=== PATIENT | male | born 1995 | race Caucasian/White ===

== ENCOUNTER 2021-10-07 16:45 | Emergency (ER) | payer BC, SELFPAY ==
--- NOTE | ~2021-10-07 | XR_ITS ---
EXAMINATION: XR chest 2V 10/07/2021 17:03 INDICATION: Chest pain PROCEDURE: 2 view chest COMPARISON: No prior studies for comparison. FINDINGS: The lungs are clear. The cardiomediastinal silhouette is within normal limits. There are no pleural effusions. There is no pneumothorax suspected. IMPRESSION: 1: NO ACUTE CARDIOPULMONARY DISEASE. Reviewed, dictated and finalized at location A.
--- NOTE | 2021-10-07 16:48 | ECG_ITS ---
Measurements Intervals [place] Rate: 106 P: 57 [place]: 134 QRS: 52 QRSD: 86 T: 44 QT: 306 QTc: 406 Interpretive Statements SINUS TACHYCARDIA BASELINE ARTIFACT- I, III, AVR, AVL, AVF BORDERLINE ECG Electronically Signed On 10-07-2021 20:01:37 CDT by Prashanth Cruz D.O.
[2021-10-07 16:53] VITALS: BP 151/85; PULSE 108; RESP 18; TEMP 36.2; O2SAT 100
[2021-10-07 17:07] LABS: Basophils Absolute Auto 0.1 K/mm3 (0.0-0.1); Basophils Percent Auto 0.5 % (0.2-1.2); Eosinophils Absolute Auto 0.2 K/mm3 (0-0.3); Eosinophils Percent Auto 1.4 % (0-4.4); Hematocrit 47.3 % (42.0-52.0); Hemoglobin 15.5 g/dL (14.0-18.0); Immature Granulocyte Absolute 0.07 K/mm3 (0.00-0.031); Immature Granulocyte Percent A 0.5 % (0-0.5); Lymphocytes Absolute Auto 3.66 K/mm3 (0.9-3.2); Lymphocytes Percent Auto 27.6 % (18.3-44.2); Mean Corpuscular HGB Conc 32.8 g/dl (32-36); Mean Corpuscular Hemoglobin 27.5 pg (26-34); Mean Corpuscular Volume 83.9 fl (80-100); Mean Platelet Volume 9.7 fl (7.4-10.4); Monocytes Absolute Auto 0.8 K/mm3 (0.1-0.6); Monocytes Percent Auto 6.3 % (2.6-8.5); Neutrophils Absolute Auto 8.4 K/mm3 (1.3-6.7); Neutrophils Percent Auto 63.7 % (45.5-73.1); Platelet Count Result 390 k/mm3 (150-375); Red Blood Count 5.64 M/mm3 (4.6-6.20); Red Cell Distribution Width 13.8 % (11.5-14.5); White Blood Count 13.2 K/mm3 (4.5-10.0)
[2021-10-07 17:18] LABS: Prothrombin Time 13.2 Seconds (11.1-14.7)
[2021-10-07 17:19] LABS: Partial Thromboplastin Time 25.2 SECONDS (22.3-36.8)
[2021-10-07 17:20] LABS: Alanine Aminotransferase 26 U/L (6-50); Albumin Level 4.8 g/dL (3.5-5.1); Alkaline Phosphatase 84 U/L (38-126); Anion Gap 13 mmol/L (8-16); Aspartate Amino Transferase 33 U/L (17-59); Bilirubin,Total 0.3 mg/dL (0.2-1.3); Blood Urea Nitrogen 16 mg/dL (9-20); Calcium 9.4 mg/dL (8.4-10.2); Carbon Dioxide 25 mmol/L (22-30); Chloride 103 mmol/L (98-107); Estimated CRCL calculation 158 ml/min; Estimated Glomerular Filt Rate > 60; Glucose 116 mg/dL (65-110); Lipase 71 U/L (23-300); Potassium 3.6 mmol/L (3.4-5.0); Sodium 141 mmol/L (137-145)
--- NOTE | 2021-10-07 17:26 | ED.CHESTPAIN ---
HPI - Chest Pain General Chief Complaint: Chest Pain Stated Complaint: palpations Time Seen by Provider: 10/07/21 17:16 History of Present Illness HPI narrative: Patient is a 26-year-old healthy male here for evaluation of chest pain and palpitations today. Patient states that he was at work when he noticed that he felt the palpitations. Pain is described as a stabbing in the center of his chest, does not radiate. denies alleviating or exacerbating factors. States that the pain is there about 80% of the time. Palpitations are there all the time, and are not worse with exertion. He also states he has had nausea and lightheadedness, but no vomiting. Denies preceding illness, fevers, sick contacts. He states he has been going through a lot of stressors recently and has been anxious today. Denies history of anxiety disorder. Related Data Allergies Allergy/AdvReac Type Severity Reaction Status Date / Time No Known Allergies Allergy Verified 10/07/21 17:26 Review of Systems Review of Systems: Gen.: Denies fevers or chills Eyes: Denies eye pain or visual change ENT: Denies congestion Respiratory: Denies shortness of breath or cough CV: Reports chest pain and palpitations GI:Reports nausea. Denies abdominal pain, emesis or diarrhea denies burning, urgency, frequency or hematuria Musculoskeletal: Denies back pain or muscle pain Neuro: Denies numbness, tingling, weakness or focal weakness Skin: Denies rash Except as documented, all other systems reviewed and negative All systems reviewed & are unremarkable except as noted in HPI and below Exam Narrative: APPEARANCE: No acute distress, nontoxic, resting in bed EYES: EOMI HEENT: Normocephalic, atraumatic, OMM RESPIRATORY: No respiratory distress Clear to auscultation bilaterally with no rhonchi wheezing or rales. CARDIOVASCULAR: 2+ radial pulses bilaterally. Fast rate, regular rhythm. No murmurs rubs or gallops. ABDOMINAL: Soft, nontender, nondistended, no rebound or guarding MUSCULOSKELETAL: Chest pain is not reproducible with palpation. Moves all extremities. No clubbing, cyanosis or edema. NEURO: Awake and alert. Following commands, speech normal, no focal deficits SKIN: Warm, dry. No rashes lesions or abrasions PSYCHIATRIC: Normal affect/mood Course Vital Signs Vital signs: Vital Signs Temperature 97.2 F L 10/07/21 16:53 Pulse Rate 108 H 10/07/21 16:53 Respiratory Rate 18 10/07/21 16:53 Blood Pressure 151/85 H 10/07/21 16:53 Pulse Oximetry 100 10/07/21 16:53 Temperature 97.2 F L 10/07/21 16:53 Pulse Rate 81 10/07/21 19:32 Respiratory Rate 20 10/07/21 19:32 Blood Pressure 150/77 H 10/07/21 19:32 Pulse Oximetry 100 10/07/21 19:33 MDM - Chest Pain MDM Narrative Medical decision making narrative: 26-year-old male here with chest pain and palpitations today. Exam without evidence of volume overload so doubt heart failure. EKG without signs of active ischemia. Given the timing of pain to ER presentation, single troponin was negative so doubt NSTEMI. Dimer was negative, so doubt PE, pneumothorax (not visualized on chest xr), thoracic aortic dissection (equal radial pulses), pericarditis, tamponade, pneumonia (no infectious symptoms, clear chest xr), myocarditis (no recent illness, neg trop). HEART score 0; will discharge patient home with PMD follow up for suspected anxiety given that patient has been dealing with many stressors recently. Will trial hydroxyzine tonight, not in the ED as patient drove here. Discussed return precautions. Lab Data Result diagrams: 10/07/21 17:00 10/07/21 17:00 Labs: Lab Results 10/07/21 10/07/21 10/07/21 Range/Units 17:00 17:00 17:00 WBC 13.2 H (4.5-10.0) K/mm3 RBC 5.64 (4.6-6.20) M/mm3 Hgb 15.5 (14.0-18.0) g/dL Hct 47.3 (42.0-52.0) % MCV 83.9 (80-100) fl MCH 27.5 (26-34) pg MCHC 32.8 (32-36) g/dl RDW 13.8 (11.5-14.5) % Plt Count
[2021-10-07 17:29] VITALS: BP 125/91; PULSE 98; RESP 14; O2SAT 97
[2021-10-07] MEDS: Please add drug allergy info to patient profile. 1 EACH XX (17:30)
[2021-10-07 17:31] LABS: Troponin I < 0.012 ng/mL (0.000-0.034)
[2021-10-07] MEDS: ASPIRIN 81 MG CHEWABLE TABLET 324 MG PO (17:34)
[2021-10-07] MEDS: ONDANSETRON HCL ODT 4 MG TABLET PO (17:35)
[2021-10-07] MEDS: IBUPROFEN 600 MG TABLET PO (17:35)
[2021-10-07 18:37] VITALS: BP 133/74; PULSE 89; RESP 20; O2SAT 100
--- NOTE | 2021-10-07 19:14 | PC.NURSE ---
Assuming care of pt.
[2021-10-07 19:20] LABS: D Dimer < 0.27 ug/mL (<0.48)
[2021-10-07 19:32] VITALS: BP 150/77; PULSE 81; RESP 20; O2SAT 100
[2021-10-07 19:33] VITALS: O2SAT 100
== END 2021-10-07 19:50 | disposition home or self-care (01) ==
PROVIDERS: Emergency Medicine; Physician Assistant; Emergency Provider Emergency Medicine
DX: F41.9 Anxiety disorder, unspecified (principal)
CPT/HCPCS: 36415; 71046; 80053; 83690; 84484; 85025; 85380; 85610; 85730; 93005; 99284; A9270

== ENCOUNTER 2022-11-20 11:37 | Emergency (ER) | payer BC, SELFPAY ==
[2022-11-20 11:47] VITALS: BP 136/88; PULSE 93; RESP 16; TEMP 36.5; O2SAT 99
--- NOTE | 2022-11-20 11:57 | ED.EXTPRO ---
HPI - Extremity Problem General Chief complaint: Extremity Problem,Nontraumatic Stated complaint: Lt Foot Pain Time Seen by Provider: 11/20/22 11:50 Source: patient Mode of arrival: ambulatory Limitations: no limitations History of Present Illness HPI Narrative: Álvaro is a 27-year-old male patient presenting to the clinic today with complaints of left lateral foot/5th toe pain that began yesterday. He reports that he is having needle sensation pain to his left lateral foot and toe. No known injury. Thinks he may have gout. History of family diabetes- States he had lab work back in December and off all the results were normal. Related Data Allergies Allergy/AdvReac Type Severity Reaction Status Date / Time No Known Allergies Allergy Verified 11/20/22 11:40 Review of Systems Review of Systems: Pertinent positives per HPI. Patient denies any fever, chills, rash, headache, visual changes, dizziness, cough, runny nose, sore throat, shortness of breath, chest pain, palpitations, nausea, vomiting, diarrhea, constipation, abdominal pain, or any urinary issues. PMFSH Comments At the time of my signature, I reviewed and agree with the nursing past medical, surgical, social, and family history. There is no relevant family history pertinent to the patient complaint. Exam Narrative: General: Well-developed, well nourished, in no apparent distress Head: Normocephalic, atraumatic. Cardio: Regular rate and rhythm, s1 and s2 normal, no murmur appreciated. Resp: Clear to auscultation bilaterally, no rhonchi, rales, wheezing or rubs. Musculoskeletal: No deformity, tender to palpation over the left 5th metatarsal and phalanx-mild swelling, no wounds, grossly normal range of motion, muscle strength strong and equal, peripheral pulse strong, no edema, no cyanosis, normal gait and station Course Course Emergency Course: Portions of this record may have been created with voice recognition software. Level of Care: Express Care Visit Vital Signs Vital signs: Vital Signs Temperature 36.5 C 11/20/22 11:47 Pulse Rate 93 11/20/22 11:47 Respiratory Rate 16 11/20/22 11:47 Blood Pressure 136/88 11/20/22 11:47 Pulse Oximetry 99 11/20/22 11:47 Temperature 36.5 C 11/20/22 11:47 Pulse Rate 93 11/20/22 11:47 Respiratory Rate 16 11/20/22 11:47 Blood Pressure 136/88 11/20/22 11:47 Pulse Oximetry 99 11/20/22 11:47 Vital signs reviewed MDM - Extremity (Nontraumatic) MDM Narrative Medical decision making narrative: At the time of visit patient is resting comfortably on the exam table. Will place the patient on prescription for naproxen and have him follow-up with his PCP if symptoms persist. Supportive measures were discussed with the patient he voiced understanding discharge instructions and agrees to treatment plan. Differential Diagnosis Differential diagnosis: Likely gout, cellulitis and other (Left foot pain, fungal infection, skin infection) Discharge Plan Discharge Clinical Impression: Acute foot pain Patient Disposition: Home, Self-Care Condition: Stable Instructions: Antibiotic Form, Foot Sprain (ED) Additional Instructions: Take naproxen as prescribed May apply ice to the affected area for 20 minutes at a time every 2-4 hours Follow-up with the PCP in 1 week if symptoms persist or sooner if they worsen Prescriptions: New naproxen 500 mg tablet 500 mg PO BID PRN (Reason: pain) 7 Days Qty: 14 0RF Follow-up/Referrals: PHYSICIAN,CORRECTIONS LIEUTENANT [Primary Care Provider] - Time of Disposition: 11:59 Quality NIHSS Nursing Documentation ED NIHSS nursing documentation: reviewed/agree
== END 2022-11-20 12:01 | disposition home or self-care (01) ==
PROVIDERS: Emergency Provider Nurse Practitioner Family
DX: M79.672 Pain in left foot (principal)
CPT/HCPCS: 99213; G0463

== ENCOUNTER 2023-02-03 08:56 | Emergency (ER) | payer BC, SELFPAY ==
[2023-02-03 09:08] VITALS: BP 131/74; PULSE 65; RESP 18; TEMP 36.3; O2SAT 98
[2023-02-03 09:09] VITALS: BP 131/74; PULSE 65; RESP 18; TEMP 36.3; O2SAT 98
--- NOTE | 2023-02-03 09:21 | ED.SKABFB ---
HPI - Skin/Abscess/Foreign Bdy General Chief complaint: Skin/Abscess/Foreign Body Stated complaint: Rash Time Seen by Provider: 02/03/23 09:21 Source: patient, RN notes reviewed and old records reviewed Mode of arrival: ambulatory Limitations: no limitations History of Present Illness HPI narrative: 27 year old male presents to [facility] with complaints of exposure to poison chris over the weekend when he was hunting coyotes. Patient has had 4 day history of red itchy rash to his right forearm, right eyebrow, right posterior neck and groin region. Patient has no weeping or vesicle formation, is itchy. Patient has applied topical OTC calamine lotion to his rash. Patient is afebrile with no difficulty with his breathing or swallowing. MD complaint: rash Onset (ago): day(s) (4) Quality: pruritic Treatments prior to arrival: OTC topical medication Related Data Allergies Allergy/AdvReac Type Severity Reaction Status Date / Time No Known Allergies Allergy Verified 02/03/23 09:09 Review of Systems Review of Systems: CONSTITUTIONAL: Denies fever, chills, or sweats. CARDIOVASCULAR: Denies chest pain, palpitations, or edema. RESPIRATORY: Denies cough or dyspnea. SKIN: Reports red raised rash to right eyebrow, right posterior neck right arm and groin which is itchy. MUSCULOSKELETAL: Denies joint pain or myalgia. NEUROLOGIC: Denies headache, numbness, or weakness. All systems reviewed & are unremarkable except as noted in HPI and below PMFSH Past Medical History Medical History (Updated 02/03/23 @ 09:55 by Joanna Villasenor NP) Anxiety Social History Social History Gender identity (if verbalized by the patient): Male Comments At time of signature, agree with nursing past medical, surgical, social and family history. There is no relevant family history pertinent to the presenting complaint Exam Narrative: GENERAL: Well-appearing, well-nourished, and in no acute distress. HEAD: Normocephalic, atraumatic. EYES: PERRLA, conjunctivae clear, and EOMI. ENT: Mucous membranes moist. Oropharynx without edema, erythema or lesions. NECK: Supple. No lymphadenopathy CHEST: Clear to auscultation. No respiratory distress. SAO2 98% on room air HEART: Regular rate and rhythm. SKIN: Warm, dry.? Patches of red raised rash to posterior neck, right arm, above right eyebrow and to groin for 4 days which is itchy, no weeping noted NEURO:? Alert and oriented x3. PSYCH: Normal mood and affect Course Course Emergency Course: Patient is aware of diagnosis, understands and agrees to treatment plan.? Anticipatory guidance given.? Patient agrees to follow-up as directed and is aware of reasons to seek care at the emergency department. Portions of this record may have been created with voice recognition software Level of Care: Express Care Visit Vital Signs Vital signs: Vital Signs Temperature 36.3 C L 02/03/23 09:08 Pulse Rate 65 02/03/23 09:08 Respiratory Rate 18 02/03/23 09:08 Blood Pressure 131/74 02/03/23 09:08 Pulse Oximetry 98 02/03/23 09:08 Oxygen Delivery Room Air 02/03/23 09:08 Temperature 36.3 C L 02/03/23 09:09 Pulse Rate 65 02/03/23 09:09 Respiratory Rate 18 02/03/23 09:09 Blood Pressure 131/74 02/03/23 09:09 Pulse Oximetry 98 02/03/23 09:09 Oxygen Delivery Room Air 02/03/23 09:09 Reviewed MDM - Skin/Abscess/Foreign Bdy MDM Narrative Medical decision making narrative: Does not appear at this time to be erythema multiforme, bullous, SJS, TEN; no evidence at this time to suggest RMSF, endocarditis or Lyme disease; patient looks well, nontoxic and is tolerating oral intake; no neurologic signs or symptoms; no headache, photophobia or neck pain; afebrile; appropriate for initial outpatient treatment; discussed the importance of follow-up, patient agrees; question, viral exanthema, contact dermatitis, aller
== END 2023-02-03 09:40 | disposition home or self-care (01) ==
PROVIDERS: Emergency Provider Registered Nurse
DX: L23.7 Allergic contact dermatitis due to plants, except food (principal)
CPT/HCPCS: 99213; G0463

== ENCOUNTER 2024-05-15 12:38 | Emergency (ER) | payer SELFPAY ==
[2024-05-15 12:39] VITALS: BP 141/74; PULSE 95; RESP 20; TEMP 36.9; O2SAT 99
--- NOTE | 2024-05-15 12:40 | ED.GENADULT ---
HPI - General Adult General Chief complaint: Anxiety Stated complaint: dizziness Time Seen by Provider: 05/15/24 12:39 Source: patient Mode of arrival: ambulatory Limitations: no limitations History of Present Illness HPI narrative: 29-year-old male with a history of anxiety disorder presents to the ED with -- severe dizziness which started this morning. He was unable to stand up. He feels vertigo. No chest pain or shortness of breath. No nausea / vomiting. No ear complaints. Sometime in the past he was diagnosed to have fluid in the ear but currently does not have any ear symptoms. -- Palpitation. -- he feels he lacks energy all the time. Onset (ago): day(s) Associated symptoms: denies other symptoms, malaise and weakness Treatments prior to arrival: none Related Data Home Medications ?Medication ?Instructions ?Recorded ?Confirmed ?Last Taken ?Type buspirone 7.5 mg tablet 7.5 mg PO BID PRN anxiety 05/15/24 05/15/24 Unknown History indomethacin 50 mg capsule mg 05/15/24 Unknown History Allergies Allergy/AdvReac Type Severity Reaction Status Date / Time No Known Allergies Allergy Verified 05/15/24 12:49 Review of Systems Review of Systems: All systems reviewed & are unremarkable except as noted in HPI and below Constitutional: Constitutional: Reports as per HPI and Reports no additional constitutional complaints Eyes: Eyes: Reports as per HPI and Reports no additional eye complaints ENT: Reports system reviewed and no additional complaints, except as documented and Reports as per HPI Cardiovascular: Cardiovascular: Reports as per HPI and Reports no additional cardiovascular complaints Respiratory: Respiratory: Reports as per HPI and Reports no additional respiratory complaints Gastrointestinal: Gastrointestinal: Reports as per HPI and Reports no additional gastrointestinal complaints Genitourinary: Genitourinary: Reports no additional male genitourinary complaints and Reports as per HPI Musculoskeletal: Musculoskeletal: Reports no additional musculoskeletal complaints and Reports as per HPI Integumentary/Breasts: Skin/Breast: Reports system reviewed and no additional complaints, except as docu and Reports as per HPI Neurologic: Reports system reviewed and no additional complaints, except as documented, Reports as per HPI, Reports vertigo, Reports dizziness and Reports weakness Psychiatric: Psychiatric: Reports no additional psychiatric complaints and Reports as per HPI Endocrine: Endocrine: Reports no additional endocrine complaints and Reports as per HPI Hematologic/Lymphatic: Hematologic/Lymphatic: Reports no additional hematologic/lymphatic complaints and Reports as per HPI Allergic/Immunologic: Allergic/Immunologic: Reports no additional allergic/immunologic complaints and Reports as per HPI [facility] Past Medical History Medical History Anxiety Social History Social History (Updated 05/15/24 @ 12:55 by Capo Roa MD) Social History: No drug or alcohol use. Nonsmoker. Substance use type: does not use Gender identity (if verbalized by the patient): Male Exam Narrative: Vitals are stable. Not orthostatic. Const: General: healthy appearing and no acute distress Nutritional Appearance: well nourished Orientation/consciousness: patient oriented x3 Limitations: no limitations HENMT: Head: normal to inspection Ears: external ears normal Face/Nose/Sinus: Normal external nose present Face and sinus: normal facial exam Mouth: Yes Normal oral and palatal mucosa present Throat: posterior oropharynx normal Eyes: Conjunctivae: conjunctivae normal Pupils: Equal, round and reactive pupils present EOM: EOMs intact bilaterally Direct Ophthalmoscopy: no photophobia Neck: Neck: normal visual inspection, no lymphadenopathy and no meningeal signs Chest: Chest palpation & inspection: normal inspection of the chest Resp: Effort & Inspection: normal respiratory effort Auscultation: clear to auscultation bilaterally Cardio: Rate: regular rate Rhythm: regular rhythm GI: GI Palp: Yes Soft to palpation Other: No tenderness/ rigidity / rebound. : General: Yes no CVA tenderness Back/Spine/Pelvis: Back: no CVA tenderness Skin: General skin exam: normal color Rashes: no rashes Wounds: no wounds Neuro: General: patient oriented x3, moves all extremities, no meningeal signs, no focal motor deficits and CN's II-XI intact bilaterally Cranial nerves: Yes Nystagmus not present Speech: normal speech Gait exam (Neuro): Normal gait present Extrem: General: normal to inspection and no clubbing, cyanosis or edema Psych: Mental Status: mental status grossly normal Affect: normal affect Attitude: cooperative Course Course Emergency Course: Anxiety Vital Signs Vital signs: Vital Signs Temperature 36.9 C 05/15/24 12:39 Pulse Rate 95 05/15/24 12:39 Respiratory Rate 20 05/15/24 12:39 Blood Pressure 141/74 H 05/15/24 12:39 Pulse Oximetry 99 05/15/24 12:39 Oxygen Delivery Room Air 05/15/24 12:39 Temperature 36.9 C 05/15/24 12:39 Pulse Rate 95 05/15/24 12:39 Respiratory Rate 20 05/15/24 12:39 Blood Pressure 141/74 H 05/15/24 12:39 Pulse Oximetry 99 05/15/24 12:39 Oxygen Delivery Room Air 05/15/24 12:39 Medical Decision Making MDM Narrative Medical decision making narrative: anxiety Medical Records Medical records reviewed: Yes I reviewed the external patient's medical records. Vital Signs Vital Signs: Vital Signs Temperature 36.9 C 05/15/24 12:39 Pulse Rate 95 05/15/24 12:39 Respiratory Rate 20 05/15/24 12:39 Blood Pressure 141/74 H 05/15/24 12:39 Pulse Oximetry 99 05/15/24 12:39 Oxygen Delivery Room Air 05/15/24 12:39 Temperature 36.9 C 05/15/24 12:39 Pulse Rate 95 05/15/24 12:39 Respiratory Rate 20 05/15/24 12:39 Blood Pressure 141/74 H 05/15/24 12:39 Pulse Oximetry 99 05/15/24 12:39 Oxygen Delivery Room Air 05/15/24 12:39 Lab Data 05/15/24 13:06 05/15/24 13:06 Labs: Lab Results 05/15/24 Range/Units 13:06 WBC 7.9 (4.8-10.8) K/mm3 RBC 5.48 (4.70-6.10) M/mm3 Hgb 15.3 (14.0-18.0) g/dL Hct 44.9 (40.0-54.0) % MCV 81.9 (78.0-102.0) fL MCH 27.9 (27.0-31.0) pg MCHC 34.1 (32-36) g/dL RDW 13.1 (11.6-14.4) % Plt Count 324 (150-420) K/mm3 MPV 9.6 (8.7-11.0) fl Immature Gran % (Auto) 0.5 H (0.0-0.0) % Neut % (Auto) 52.0 (50.0-70.0) % Lymph % (Auto) 39.2 (18.0-42.0) % [place] % (Auto) 4.9 (2.0-11.0) % Eos % (Auto) 2.9 (1.0-6.0) % Baso % (Auto) 0.5 (0.0-1.0) % Lymph # (Auto) 3.09 (1.10-4.50) K/mm3 [place] # (Auto) 0.39 (0.10-0.90) K/mm3 Eos # (Auto) 0.23 (0.02-0.50) K/mm3 Baso # (Auto) 0.04 (0.00-0.10) K/mm3 Abs Immat Gran (auto) 0.04 H (0.00-0.00) K/mm3 Absolute Neuts (auto) 4.09 (1.70-7.20) K/mm3 Absolute Nucleated RBC 0.00 (0.00-0.00) K/mm3 Nucleated RBC % 0.0 (0-0.0) % Sodium 139 (136-145) mmol/L Potassium 3.9 (3.5-5.1) mmol/L Chloride 100 (98-108) mmol/L Carbon Dioxide 29 (21-32) mmol/L Anion Gap 10 (4-12) mmol/L BUN 12 (7-18) mg/dL Creatinine 0.85 (0.70-1.30) mg/dL Estim Creat Clear Calc 146 ml/min Estimated GFR > 60 (59 - ) Glucose 106 H (70-99) mg/dL Calculated Osmolality 287 (285-295) mOsm/kg Lactic Acid 1.6 (0.4-2.0) mmol/L Calcium 9.1 (8.5-10.1) mg/dL Total Bilirubin 0.3 (0.00-1.00) mg/dL AST 11 L (15-37) U/L ALT 23 (16-63) U/L Alkaline Phosphatase 86 (46-116) U/L Troponin I < 4.0 (0.00-60.4) ng/L Total Protein 7.4 (6.4-8.2) g/dL Albumin 4.0 (3.4-5.0) g/dL TSH 2.95 (0.36-3.74) uIU/mL ECG Data EKG #1: ECG completion date: 05/15/24 ECG completion time: 13:12 Interpretation: normal sinus rhythm. Normal axis. No ST-T wave changes noted. Discharge Plan Discharge Clinical Impression: Acute anxiety Patient Disposition: Home, Self-Care Condition: Stable Instructions: Antibiotic Form, Anxiety (ED) Patient Language: Kyrgyz Prescriptions: No Action indomethacin 50 mg capsule buspirone 7.5 mg tablet 7.5 mg PO BID PRN (Reason: anxiety) Follow-up/Referrals: UNKNOWN,DOCTOR [Non-Staff] - Time of Disposition: 14:06
[2024-05-15 12:46] VITALS: BP 128/84; PULSE 88; O2SAT 99
[2024-05-15 12:50] VITALS: BP 135/89; PULSE 100; O2SAT 98
--- NOTE | 2024-05-15 12:56 | ECG_ITS ---
Test Date: 2024-05-15 13:12:26 Measurements Intervals [place] Rate: 73 P: 61 SC: 155 QRS: 68 QRSD: 91 T: 53 QT: 359 QTc: 398 Interpretive Statements SINUS RHYTHM No previous ECG available for comparison Electronically Signed On 05-15-2024 14:45:02 [employer] by Natalie Mahoney M.D.
[2024-05-15 13:11] LABS: Basophils Absolute Auto 0.04 K/mm3 (0.00-0.10); Basophils Percent Auto 0.5 % (0.0-1.0); Eosinophils Absolute Auto 0.23 K/mm3 (0.02-0.50); Eosinophils Percent Auto 2.9 % (1.0-6.0); Hematocrit 44.9 % (40.0-54.0); Hemoglobin 15.3 g/dL (14.0-18.0); Immature Granulocyte Absolute 0.04 K/mm3 (0.00-0.00); Immature Granulocyte Percent A 0.5 % (0.0-0.0); Lymphocytes Absolute Auto 3.09 K/mm3 (1.10-4.50); Lymphocytes Percent Auto 39.2 % (18.0-42.0); Mean Corpuscular HGB Conc 34.1 g/dL (32-36); Mean Corpuscular Hemoglobin 27.9 pg (27.0-31.0); Mean Corpuscular Volume 81.9 fL (78.0-102.0); Mean Platelet Volume 9.6 fl (8.7-11.0); Monocytes Absolute Auto 0.39 K/mm3 (0.10-0.90); Monocytes Percent Auto 4.9 % (2.0-11.0); Neutrophils Absolute Auto 4.09 K/mm3 (1.70-7.20); Platelet Count Result 324 K/mm3 (150-420); Red Blood Count 5.48 M/mm3 (4.70-6.10); Red Cell Distribution Width 13.1 % (11.6-14.4); White Blood Count 7.9 K/mm3 (4.8-10.8)
[2024-05-15 13:16] VITALS: BP 118/88; PULSE 75; O2SAT 98
[2024-05-15 13:31] VITALS: BP 123/79; PULSE 72; RESP 14; O2SAT 97
[2024-05-15 13:31] LABS: Lactic Acid Reflex 1.6 mmol/L (0.4-2.0)
[2024-05-15] MEDS: ALPRAZolam (*CRX) 0.25 MG TABLET PO (13:31)
[2024-05-15 13:38] LABS: Alanine Aminotransferase 23 U/L (16-63); Alkaline Phosphatase 86 U/L (46-116); Anion Gap 10 mmol/L (4-12); Aspartate Amino Transferase 11 U/L (15-37); Bilirubin,Total 0.3 mg/dL (0.00-1.00); Blood Urea Nitrogen 12 mg/dL (7-18); Calcium 9.1 mg/dL (8.5-10.1); Carbon Dioxide 29 mmol/L (21-32); Chloride 100 mmol/L (98-108); Estimated CRCL calculation 146 ml/min; Estimated Glomerular Filt Rate > 60; Glucose 106 mg/dL (70-99); Osmolality Calculated 287 mOsm/kg (285-295); Potassium 3.9 mmol/L (3.5-5.1); Sodium 139 mmol/L (136-145); Thyroid Stimulating Hormone 2.95 uIU/mL (0.36-3.74); Total Protein 7.4 g/dL (6.4-8.2)
[2024-05-15 13:49] LABS: Troponin I < 4.0 ng/L (0.00-60.4)
--- NOTE | 2024-05-15 14:06 | PC.NURSE ---
PT UP TO RR WITHOUT DIFFICULTY. MOTHER IS AT BEDSIDE. PT IS PLAYING A GAME ON HIS PHONE WITHOUT DISTRESS. PT IS AWAITING RESULTS. WILL CONTINUE TO MONITOR.
== END 2024-05-15 14:10 | disposition home or self-care (01) ==
PROVIDERS: Emergency Provider Internal Medicine Critical Care Medicine; PCP Family Medicine
DX: F41.9 Anxiety disorder, unspecified (principal)
CPT/HCPCS: 36415; 80053; 83605; 84443; 84484; 85025; 93005; 99284; A9270